=== PATIENT | male | born 2000 | race Caucasian/White ===

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

== ENCOUNTER 2018-02-19 17:59 | Emergency (ER) | payer OTHER ==
[~2018-02-19] VITALS: Ht 165.1 cm; Wt 45.8 kg
[2018-02-19 18:02] VITALS: Ht 165.1 cm; Wt 45.8 kg
[2018-02-19 18:34] LABS: BASOPHIL % 0.5 % (0-2); PLATELET COUNT 274 x10^3mcL (130-400); RED CELL DISTRIBUTION WIDTH 13.4 % (11.5-14.5)
[2018-02-19 18:46] LABS: CALCIUM 9.5 mg/dL (8.5-10.1); CARBON DIOXIDE 28.9 mmol/L (21-32); CHLORIDE SERUM 102 mmol/L (98-107); CREATININE SERUM 0.9 mg/dL (0.7-1.3); GFR1 > 60 mL/min; GLUCOSE SERUM 79 mg/dL (74-106); POTASSIUM SERUM 3.4 mmol/L (3.5-5.1); SODIUM SERUM 138 mmol/L (136-145)
[2018-02-19 18:51] LABS: ALBUMIN 4.5 g/dL (3.4-5.0); ALKALINE PHOSPHATASE 76 U/L (46-116); ALT/SGPT 26 U/L (16-63); AST/SGOT 23 U/L (15-37); BILIRUBIN TOTAL 0.65 mg/dL (0.20-1.00); TOTAL PROTEIN, SERUM 7.7 g/dL (6.4-8.2)
[2018-02-19 19:47] VITALS: BP 139/86
== END 2018-02-19 19:47 | disposition home or self-care (01) ==
LOC: ED 17:59
PROVIDERS: Emergency Medicine
DX: F15.10 Other stimulant abuse, uncomplicated (principal); R07.89 Other chest pain
CPT/HCPCS: 36415

== ENCOUNTER 2019-08-28 21:45 | Emergency (ER) | payer MEDICAID ==
[~2019-08-28] VITALS: Ht 170.2 cm; Wt 58.1 kg
[2019-08-28 21:49] VITALS: Ht 170.2 cm; Wt 58.1 kg
[2019-08-28 22:12] LABS: BASOPHIL % 0.5 % (0-2); PLATELET COUNT 262 x10^3mcL (130-400); RED CELL DISTRIBUTION WIDTH 12.2 % (11.5-14.5)
[2019-08-28 22:18] LABS: CALCIUM 8.7 mg/dL (8.5-10.1); CARBON DIOXIDE 29.6 mmol/L (21-32); CHLORIDE SERUM 105 mmol/L (98-107); CREATININE SERUM 0.8 mg/dL (0.7-1.3); GFR1 > 60 mL/min; GLUCOSE SERUM 114 mg/dL (74-106); POTASSIUM SERUM 3.7 mmol/L (3.5-5.1); SODIUM SERUM 142 mmol/L (136-145)
[2019-08-28 22:22] LABS: ALBUMIN 3.8 g/dL (3.4-5.0); ALKALINE PHOSPHATASE 97 U/L (46-116); ALT/SGPT 34 U/L (16-63); AST/SGOT 20 U/L (15-37); BILIRUBIN TOTAL 0.25 mg/dL (0.20-1.00); TOTAL PROTEIN, SERUM 7.1 g/dL (6.4-8.2)
[2019-08-28 22:52] LABS: microscopic required? NO
[2019-08-28 23:04] LABS: UA SPECIFIC GRAVITY 1.015 (1.005-1.035); urine erythrocyte NEGATIVE (NEGATIVE)
[2019-08-28 23:14] LABS: AMPHETAMINE QUAL UR NONE DETECTED (See below)
[2019-08-29 10:59] VITALS: BP 102/54
== END 2019-08-29 10:59 | disposition short-term general hospital (02) ==
LOC: ED 21:45
PROVIDERS: Specialist
DX: R44.0 Auditory hallucinations (principal); F15.10 Other stimulant abuse, uncomplicated
CPT/HCPCS: 36415; G0480

== ENCOUNTER 2020-05-08 19:25 | Emergency (ER) | payer OTHER, SELFPAY ==
[~2020-05-08] VITALS: Ht 162.6 cm; Wt 68.9 kg
[2020-05-08 21:14] VITALS: Ht 162.6 cm; Wt 68.9 kg
[2020-05-08 23:19] VITALS: BP 121/87
== END 2020-05-08 23:19 | disposition home or self-care (01) ==
LOC: ED 19:25
DX: U07.1 COVID-19 (principal); J06.9 Acute upper respiratory infection, unspecified; F17.210 Nicotine dependence, cigarettes, uncomplicated; F15.10 Other stimulant abuse, uncomplicated; F12.10 Cannabis abuse, uncomplicated
CPT/HCPCS: Q0092; U0003-CS